=== PATIENT | female | born 1955 | race Caucasian/White ===

== ENCOUNTER 2017-11-30 06:27 | Inpatient (IN) | payer MEDICARE, BC ==
[~2017-11-30] VITALS: Ht 162.6 cm; Wt 76.5 kg
[2017-11-30] MEDS ORDERED: ondansetron/PF 4mg/2ml inj IV ONE (06:45)
[2017-11-30] MEDS ORDERED: morphine 4 MG/ML inj SYRINge IV ONE ×2 (06:45→09:10)
[2017-11-30 06:54] LABS: BASOPHILS % (AUTO) 0.3 % (0-1); EOSINOPHILS # (AUTO) 0.1 X10'3 (0-0.9); EOSINOPHILS % (AUTO) 1.5 % (0-6); HEMATOCRIT 39.2 % (35.0-45.0); HEMOGLOBIN 13.7 g/dl (12.0-16.0); LYMPHOCYTES # (AUTO) 1.6 X10'3 (1.1-4.8); LYMPHOCYTES % (AUTO) 17.2 % (21-51); MEAN CORPUSCULAR HEMOGLOBIN 29.9 PG (27.0-31.0); MEAN CORPUSCULAR HGB CONC 34.9 % (33.0-36.5); MEAN CORPUSCULAR VOLUME 85.6 FL (78-98); MEAN PLATELET VOLUME 9.4 FL (7.4-10.4); MONOCYTES # (AUTO) 0.8 X10'3 (0-0.9); MONOCYTES % (AUTO) 8.1 % (2-12); NEUTROPHILS % (AUTO) 72.9 % (42-75); PLATELET COUNT 216 X10'3 (140-440); RED BLOOD COUNT 4.58 X10'6 (4.20-5.60); RED CELL DISTRIBUTION WIDTH 14.7 % (11.5-14.5); WHITE BLOOD COUNT 9.5 X10'3 (4.5-11.0)
[2017-11-30 07:10] LABS: ALANINE AMINOTRANSFERASE 35 U/L (12-78); ALBUMIN 3.5 G/DL (3.4-5.0); ALBUMIN/GLOBULIN RATIO 0.8 (1.1-1.5); ALKALINE PHOSPHATASE 74 IU/L (46-116); ANION GAP 10 (8-16); ASPARTATE AMINO TRANSFERASE 21 U/L (10-37); BILIRUBIN,TOTAL 0.8 MG/DL (0.1-1.0); BLOOD UREA NITROGEN 15 MG/DL (7-18); BUN/CREATININE RATIO 14.2 (6.6-38.0); CALCIUM 9.1 MG/DL (8.5-10.1); CHLORIDE 105 MMOL/L (99-107); CREATININE 1.06 MG/DL (0.40-0.90); GLUCOSE 103 MG/DL (70-104); LIPASE 133 U/L (73-393); POTASSIUM 3.9 MMOL/L (3.5-5.1); SODIUM 141 MMOL/L (135-145); TOTAL CARBON DIOXIDE 26.1 MMOL/L (24-32); TOTAL PROTEIN 7.7 G/DL (6.4-8.2); eGFR 52 ML/MIN
[2017-11-30] MEDS ORDERED: normal saline 1000ML IV soln IVB ONE (07:15)
[2017-11-30 07:17] LABS: COLOR,URINE Yellow (Yellow); GLUCOSE, URINE Negative (Neg); KETONES,URINE Trace mg/dl (Neg); LEUKOCYTE ESTERASE ,URINE Moderate (Neg); NITRITES, URINE Negative (Neg); OCCULT BLOOD,URINE Moderate (Neg); PROTEIN,URINE Trace mg/dl (Neg)
[2017-11-30 07:25] LABS: UA COLLECTION TYPE CLN CATCH MIDSTREAM
[2017-11-30 07:31] LABS: BACTERIA,URINE 1+ /HPF (Neg); MUCUS STRANDS FEW /LPF (Neg); RENAL CELLS, URINE FEW /HPF; SQUAMOUS EPITHELIAL CELL,UR MANY /LPF (FEW)
[2017-11-30 08:24] LABS: PROTHROMBIN TIME 66.9 SECONDS (9.0-12.0)
[2017-11-30 08:49] LABS: INR 6.9 INR
[2017-11-30] MEDS ORDERED: phytonadione inj. 10 MG in normal saline 100ml IV soln 99 ML IV ONE (09:40)
[2017-11-30] MEDS ORDERED: DORZ10DR18 RIGHTEYE (10:04)
[2017-11-30] MEDS ORDERED: COU5T PO (10:04)
[2017-11-30] MEDS ORDERED: CHOL100046 PO (10:04)
[2017-11-30] MEDS ORDERED: CRAN500T2 PO (10:04)
[2017-11-30] MEDS ORDERED: FURO-150 PO (10:04)
[2017-11-30] MEDS ORDERED: ATEN-169 PO (10:04)
[2017-11-30] MEDS ORDERED: FISH12002 PO (10:04)
[2017-11-30] MEDS ORDERED: MULT-38 PO (10:04)
[2017-11-30] MEDS ORDERED: REM100I (10:04)
[2017-11-30] MEDS ORDERED: HYDR-3965 PO (10:04)
[2017-11-30] MEDS ORDERED: XAL0.005OS OP (10:04)
[2017-11-30] MEDS ORDERED: PRAV80TA3 PO (10:04)
[2017-11-30] MEDS ORDERED: AMLO2.5T2 PO (10:04)
[2017-11-30] MEDS ORDERED: AMIO200T57 PO (10:04)
[2017-11-30] MEDS ORDERED: QUIN40TA14 PO (10:04)
[2017-11-30] MEDS ORDERED: FOLI0.4T2 PO (10:04)
[2017-11-30 11:46] VITALS: BP 126/79
[2017-11-30 12:15] VITALS: BP 130/80
[2017-11-30] MEDS ORDERED: HYDROcodone/acetaminophen 5mg/325mg tablet PO PRN (12:25)
[2017-11-30] MEDS ORDERED: magnesium hydroxide 30ml (MOM) UD suspension PO PRN (12:25)
[2017-11-30] MEDS ORDERED: mag hydrox/Alum hydrox/simeth 30ml oral suspension PO PRN (12:25)
[2017-11-30] MEDS ORDERED: ondansetron/PF 4mg/2ml inj IV PRN (12:25)
[2017-11-30] MEDS ORDERED: acetaminophen 325mg tablet PO PRN ×2 (12:25)
[2017-11-30] MEDS ORDERED: morphine 4 MG/ML inj SYRINge IV PRN (12:25)
[2017-11-30] MEDS ORDERED: atenolol 50mg tablet PO SCH (12:30)
[2017-11-30] MEDS: dorzolamide/timolol (Cosopt) ophthalmic drops 10ml bottle RIGHTEYE SCH (13:56)
[2017-11-30] MEDS: amiodarone 200mg tablet PO SCH (13:58)
[2017-11-30 14:03] VITALS: BP 127/56
[2017-11-30] MEDS: HYDROcodone/acetaminophen 10/325mg tab PO PRN ×2 (14:15→19:46)
[2017-11-30 15:24] LABS: BASOPHILS % (AUTO) 0.2 % (0-1); EOSINOPHILS # (AUTO) 0.2 X10'3 (0-0.9); EOSINOPHILS % (AUTO) 2.3 % (0-6); HEMATOCRIT 34.4 % (35.0-45.0); HEMOGLOBIN 11.6 g/dl (12.0-16.0); LYMPHOCYTES # (AUTO) 1.5 X10'3 (1.1-4.8); LYMPHOCYTES % (AUTO) 19.3 % (21-51); MEAN CORPUSCULAR HEMOGLOBIN 29.4 PG (27.0-31.0); MEAN CORPUSCULAR HGB CONC 33.8 % (33.0-36.5); MEAN PLATELET VOLUME 9.4 FL (7.4-10.4); MONOCYTES # (AUTO) 0.8 X10'3 (0-0.9); MONOCYTES % (AUTO) 10.3 % (2-12); NEUTROPHILS # (AUTO) 5.2 X10'3 (1.8-7.7); NEUTROPHILS % (AUTO) 67.9 % (42-75); PLATELET COUNT 174 X10'3 (140-440); RED BLOOD COUNT 3.96 X10'6 (4.20-5.60); RED CELL DISTRIBUTION WIDTH 14.3 % (11.5-14.5); WHITE BLOOD COUNT 7.7 X10'3 (4.5-11.0)
[2017-11-30 15:32] LABS: INR 1.6 INR
[2017-11-30 18:22] LABS: CLARITY,URINE Slightly Cloudy (Clear)
[2017-11-30 20:00] VITALS: BP 107/76
[2017-11-30] MEDS ORDERED: CRANBERRY EXTRACT 4200 MG PO SCH (20:00)
[2017-11-30] MEDS ORDERED: temazepam 15mg capsule PO PRN (21:00)
[2017-11-30] MEDS: OMEGA-3/DHA/EPA/FISH OIL 1 EACH CAPSULE.DR PO SCH (21:39)
[2017-11-30] MEDS: lisinopril 20mg tablet PO SCH (21:40)
[2017-11-30] MEDS: pravastatin 40mg tablet PO SCH (21:40)
[2017-11-30] MEDS: latanoprost 0.005% 2.5ml ophthalmic drops EACHEYE SCH (21:44)
[2017-12-01] MEDS: HYDROcodone/acetaminophen 10/325mg tab PO PRN ×5 (01:35→23:18)
[2017-12-01 06:03] LABS: BASOPHILS % (AUTO) 0.3 % (0-1); EOSINOPHILS # (AUTO) 0.2 X10'3 (0-0.9); EOSINOPHILS % (AUTO) 2.5 % (0-6); HEMATOCRIT 33.4 % (35.0-45.0); HEMOGLOBIN 11.5 g/dl (12.0-16.0); LYMPHOCYTES # (AUTO) 1.4 X10'3 (1.1-4.8); LYMPHOCYTES % (AUTO) 17.2 % (21-51); MEAN CORPUSCULAR HEMOGLOBIN 29.7 PG (27.0-31.0); MEAN CORPUSCULAR HGB CONC 34.6 % (33.0-36.5); MEAN PLATELET VOLUME 9.9 FL (7.4-10.4); MONOCYTES # (AUTO) 0.9 X10'3 (0-0.9); MONOCYTES % (AUTO) 11.1 % (2-12); NEUTROPHILS # (AUTO) 5.7 X10'3 (1.8-7.7); NEUTROPHILS % (AUTO) 68.9 % (42-75); PLATELET COUNT 173 X10'3 (140-440); RED BLOOD COUNT 3.88 X10'6 (4.20-5.60); RED CELL DISTRIBUTION WIDTH 14.6 % (11.5-14.5); WHITE BLOOD COUNT 8.3 X10'3 (4.5-11.0)
[2017-12-01 06:09] LABS: INR 1.1 INR; PROTHROMBIN TIME 11.2 SECONDS (9.0-12.0)
[2017-12-01 06:19] LABS: ALBUMIN 2.8 G/DL (3.4-5.0); ANION GAP 10 (8-16); BLOOD UREA NITROGEN 14 MG/DL (7-18); CALCIUM 8.3 MG/DL (8.5-10.1); CHLORIDE 107 MMOL/L (99-107); GLUCOSE 106 MG/DL (70-104); POTASSIUM 3.8 MMOL/L (3.5-5.1); SODIUM 143 MMOL/L (135-145); TOTAL CARBON DIOXIDE 25.9 MMOL/L (24-32); eGFR 56 ML/MIN
[2017-12-01 08:00] VITALS: BP 110/73
[2017-12-01] MEDS ORDERED: amLODIPine 2.5mg tablet PO SCH ×2 (08:00→11:13)
[2017-12-01] MEDS: vitamin D (cholecalciferol) 1,000 unit tablet PO SCH (08:00)
[2017-12-01] MEDS: multivitamins, therapeutics tablet PO SCH (08:00)
[2017-12-01] MEDS: furosemide 20MG tablet PO SCH (08:00)
[2017-12-01] MEDS: atenolol 25mg tablet PO SCH (08:00)
[2017-12-01] MEDS: folic acid 1mg tablet PO SCH (08:00)
[2017-12-01] MEDS: OMEGA-3/DHA/EPA/FISH OIL 1 EACH CAPSULE.DR PO SCH ×2 (08:00→20:34)
[2017-12-01] MEDS: dorzolamide/timolol (Cosopt) ophthalmic drops 10ml bottle RIGHTEYE SCH (08:00)
[2017-12-01] MEDS: amiodarone 200mg tablet PO SCH (08:58)
[2017-12-01] MEDS: lisinopril 20mg tablet PO SCH ×2 (08:58→20:34)
[2017-12-01 11:00] VITALS: BP 112/74
[2017-12-01] MEDS ORDERED: heparin 10,000 units/1 ML INJ IV ONE (12:40)
[2017-12-01] MEDS ORDERED: heparin 10,000 units/1 ML INJ IV PRN (12:40)
[2017-12-01 20:00] VITALS: BP 102/67
[2017-12-01] MEDS: pravastatin 40mg tablet PO SCH (20:34)
[2017-12-01] MEDS: latanoprost 0.005% 2.5ml ophthalmic drops EACHEYE SCH (20:36)
[2017-12-02] VITALS: BP 88/59
[2017-12-02] MEDS: HYDROcodone/acetaminophen 10/325mg tab PO PRN ×3 (03:19→13:55)
[2017-12-02 06:01] LABS: PROTHROMBIN TIME 10.6 SECONDS (9.0-12.0)
[2017-12-02 06:25] LABS: ALBUMIN 2.5 G/DL (3.4-5.0); ANION GAP 8 (8-16); BLOOD UREA NITROGEN 13 MG/DL (7-18); BUN/CREATININE RATIO 12.7 (6.6-38.0); CALCIUM 8.4 MG/DL (8.5-10.1); CHLORIDE 106 MMOL/L (99-107); CREATININE 1.02 MG/DL (0.40-0.90); GLUCOSE 104 MG/DL (70-104); POTASSIUM 3.6 MMOL/L (3.5-5.1); SODIUM 141 MMOL/L (135-145); TOTAL CARBON DIOXIDE 26.8 MMOL/L (24-32); eGFR 55 ML/MIN
[2017-12-02 06:50] LABS: BASOPHILS % (AUTO) 0.4 % (0-1); EOSINOPHILS # (AUTO) 0.2 X10'3 (0-0.9); EOSINOPHILS % (AUTO) 2.2 % (0-6); HEMATOCRIT 31.6 % (35.0-45.0); HEMOGLOBIN 11.1 g/dl (12.0-16.0); LYMPHOCYTES # (AUTO) 1.8 X10'3 (1.1-4.8); LYMPHOCYTES % (AUTO) 20.1 % (21-51); MEAN CORPUSCULAR HEMOGLOBIN 30.3 PG (27.0-31.0); MEAN CORPUSCULAR HGB CONC 35.1 % (33.0-36.5); MEAN CORPUSCULAR VOLUME 86.4 FL (78-98); MEAN PLATELET VOLUME 10.5 FL (7.4-10.4); MONOCYTES # (AUTO) 1.1 X10'3 (0-0.9); MONOCYTES % (AUTO) 12.7 % (2-12); NEUTROPHILS # (AUTO) 5.9 X10'3 (1.8-7.7); NEUTROPHILS % (AUTO) 64.6 % (42-75); PLATELET COUNT 155 X10'3 (140-440); RED BLOOD COUNT 3.66 X10'6 (4.20-5.60); RED CELL DISTRIBUTION WIDTH 13.4 % (11.5-14.5)
[2017-12-02 08:00] VITALS: BP 107/81
[2017-12-02] MEDS: lisinopril 20mg tablet PO SCH (09:21)
[2017-12-02] MEDS: folic acid 1mg tablet PO SCH (09:21)
[2017-12-02] MEDS: amiodarone 200mg tablet PO SCH (09:21)
[2017-12-02] MEDS: atenolol 25mg tablet PO SCH (09:22)
[2017-12-02] MEDS: vitamin D (cholecalciferol) 1,000 unit tablet PO SCH (09:22)
[2017-12-02] MEDS: furosemide 20MG tablet PO SCH (09:22)
[2017-12-02] MEDS: multivitamins, therapeutics tablet PO SCH (09:22)
[2017-12-02] MEDS: OMEGA-3/DHA/EPA/FISH OIL 1 EACH CAPSULE.DR PO SCH (09:22)
[2017-12-02] MEDS: dorzolamide/timolol (Cosopt) ophthalmic drops 10ml bottle RIGHTEYE SCH (09:23)
[2017-12-02 12:00] VITALS: BP 112/73
[2017-12-02] MEDS ORDERED: HYDR-3972 PO (12:50)
== END 2017-12-02 15:00 | disposition home or self-care (01) | DRG 604 ==
LOC: ER 06:28 → ED HOLD 12:23 → EDBEDREQ 16:47 → SUR 3N 17:47
PROVIDERS: ADMIT Hospitalist; ATTEND Family Medicine
PROC: 30233L1 Transfusion of Nonautologous Fresh Plasma into Peripheral Vein, Percutaneous Approach (ICD-10-PCS; principal; 2017-11-30)
PROC: 30233K1 Transfusion of Nonautologous Frozen Plasma into Peripheral Vein, Percutaneous Approach (ICD-10-PCS; 2017-11-30)
DX: S30.1XXA Contusion of abdominal wall, initial encounter (principal); K66.1 Hemoperitoneum; I13.0 Hypertensive heart and chronic kidney disease with heart failure and stage 1 through stage 4 chronic kidney disease, or unspecified chronic kidney disease; I50.9 Heart failure, unspecified; I48.91 Unspecified atrial fibrillation; D50.0 Iron deficiency anemia secondary to blood loss (chronic); N18.9 Chronic kidney disease, unspecified; T45.515A Adverse effect of anticoagulants, initial encounter; X58.XXXA Exposure to other specified factors, initial encounter; E78.00 Pure hypercholesterolemia, unspecified; E78.5 Hyperlipidemia, unspecified; M06.9 Rheumatoid arthritis, unspecified; R19.00 Intra-abdominal and pelvic swelling, mass and lump, unspecified site; Z96.649 Presence of unspecified artificial hip joint; Z79.01 Long term (current) use of anticoagulants; Z79.899 Other long term (current) drug therapy; Z88.0 Allergy status to penicillin; Z86.73 Personal history of transient ischemic attack (TIA), and cerebral infarction without residual deficits; Y93.89 Activity, other specified; Y92.89 Other specified places as the place of occurrence of the external cause; Y99.8 Other external cause status
CPT/HCPCS: 36415; 74176; 80048; 80053; 81001; 83690; 83880; 84439; 84443; 84484; 85025; 85610; 85730; 86885; 86900; 86901; 87070; 96361; 96365; 96375; 96376; 99285; J1644; J2270; J2405; J3430; J7030; P9059

== ENCOUNTER 2021-03-02 08:39 | Emergency (ER) | payer MEDICARE ==
[~2021-03-02] VITALS: Ht 162.6 cm; Wt 68.2 kg
[~2021-03-02 08:39] MED LIST: CARV6.253 PO; CHOL100046 PO; DORZ10DR18 RIGHTEYE; FURO40TA4 PO; HYDR-3972 PO; MULT-38 PO; PRAV80TA3 PO; QUIN40TA14 PO; WARF-113 PO; XAL0.005OS OP
[2021-03-02 10:07] VITALS: BP 148/82
== END 2021-03-02 13:30 | disposition home or self-care (01) ==
LOC: ER 08:40
DX: S90.32XA Contusion of left foot, initial encounter (principal); I48.91 Unspecified atrial fibrillation; I25.10 Atherosclerotic heart disease of native coronary artery without angina pectoris; I50.9 Heart failure, unspecified; E78.00 Pure hypercholesterolemia, unspecified; M06.9 Rheumatoid arthritis, unspecified; Z86.73 Personal history of transient ischemic attack (TIA), and cerebral infarction without residual deficits; Z88.0 Allergy status to penicillin; Z79.01 Long term (current) use of anticoagulants; Z79.899 Other long term (current) drug therapy; W20.8XXA Other cause of strike by thrown, projected or falling object, initial encounter; Y93.89 Activity, other specified; Y92.89 Other specified places as the place of occurrence of the external cause; Y99.8 Other external cause status
CPT/HCPCS: 73630; 73700; 99284

== ENCOUNTER 2021-03-04 11:17 | Emergency (ER) | payer MEDICARE ==
[~2021-03-04] VITALS: Ht 162.6 cm; Wt 68.1 kg
[2021-03-04] MEDS ORDERED: levoFLOXACIN-Levaquin 500mg/D5 100 ML IV ONE (11:35)
[2021-03-04 11:46] VITALS: BP 146/91
[2021-03-04 12:14] LABS: BASOPHILS % (AUTO) 0.5 % (0-1); EOSINOPHILS # (AUTO) 0.1 X10'3 (0-0.9); EOSINOPHILS % (AUTO) 1.7 % (0-6); HEMATOCRIT 41.6 % (35.0-45.0); LYMPHOCYTES # (AUTO) 1.3 X10'3 (1.1-4.8); LYMPHOCYTES % (AUTO) 15.9 % (21-51); MEAN CORPUSCULAR HGB CONC 33.6 g/dL (33.0-36.5); MEAN CORPUSCULAR VOLUME 86.4 FL (78-98); MEAN PLATELET VOLUME 8.9 FL (7.4-10.4); MONOCYTES # (AUTO) 0.8 X10'3 (0-0.9); MONOCYTES % (AUTO) 10.4 % (2-12); NEUTROPHILS # (AUTO) 5.8 X10'3 (1.8-7.7); NEUTROPHILS % (AUTO) 71.5 % (42-75); PLATELET COUNT 227 X10'3 (140-440); RED BLOOD COUNT 4.81 X10'6 (4.20-5.60); RED CELL DISTRIBUTION WIDTH 16.7 % (11.5-14.5); WHITE BLOOD COUNT 8.1 X10'3 (4.5-11.0)
[2021-03-04 12:30] LABS: ALANINE AMINOTRANSFERASE 22 U/L (12-78); ALBUMIN 3.4 G/DL (3.4-5.0); ALBUMIN/GLOBULIN RATIO 0.7 (1.1-1.5); ALKALINE PHOSPHATASE 84 IU/L (46-116); ANION GAP 10 (8-16); ASPARTATE AMINO TRANSFERASE 19 U/L (10-37); BILIRUBIN,TOTAL 0.8 MG/DL (0.1-1.0); BLOOD UREA NITROGEN 13 MG/DL (7-18); BUN/CREATININE RATIO 11.3 (6.6-38.0); CALCIUM 8.7 MG/DL (8.5-10.1); CHLORIDE 103 MMOL/L (99-107); CREATININE 1.15 MG/DL (0.40-0.90); GLUCOSE 112 MG/DL (70-104); SODIUM 139 MMOL/L (135-145); TOTAL CARBON DIOXIDE 25.9 MMOL/L (24-32); TOTAL PROTEIN 8.3 G/DL (6.4-8.2); eGFR 47 ML/MIN
--- NOTE | 2021-03-04 13:21 | NUR ---
Md Hilton at bedside and discontinue iv antibiotic and blood culture. Pt will be discharge with po antibiotic at this time
[2021-03-04] MEDS ORDERED: DOXY100C43 PO (13:26)
[2021-03-04] MEDS ORDERED: CLIN-97 PO (13:26)
[2021-03-04] MEDS ORDERED: DOXYCYCLINE 100MG CAPSULE PO STA (13:29)
[2021-03-04] MEDS ORDERED: clindamycin 150mg capsule PO ONE (13:30)
--- NOTE | 2021-03-04 13:31 | NUR ---
pt L foot swelling and redness. Increase swelling and pain in the past few days. wound dry and no discharge on top foot. mild pitting due to swelling.
== END 2021-03-04 13:42 | disposition home or self-care (01) ==
LOC: ER 11:17
DX: L03.116 Cellulitis of left lower limb (principal); M79.672 Pain in left foot; I48.91 Unspecified atrial fibrillation; I25.10 Atherosclerotic heart disease of native coronary artery without angina pectoris; I50.9 Heart failure, unspecified; E78.00 Pure hypercholesterolemia, unspecified; Z86.73 Personal history of transient ischemic attack (TIA), and cerebral infarction without residual deficits; Z88.0 Allergy status to penicillin; Z79.2 Long term (current) use of antibiotics; Z79.899 Other long term (current) drug therapy
CPT/HCPCS: 36415; 80053; 83605; 84145; 85025; 87040; 99283